=== PATIENT | female | born 1995 | race Caucasian/White ===

== ENCOUNTER 2018-05-19 04:12 | Emergency (ER) | payer BC ==
[~2018-05-19] VITALS: Ht 172.7 cm; Wt 63.5 kg
[2018-05-19] MEDS ORDERED: NOHOMEMEDICATIONS (04:24)
[2018-05-19] MEDS ORDERED: HYDROCODON-ACE118 ML PO (04:53)
[2018-05-19] MEDS ORDERED: LIDOCAINE VISC100 ML SWISH&SPIT (04:53)
[2018-05-19 05:16] VITALS: BP 119/77
== END 2018-05-19 05:18 | disposition home or self-care (01) ==
LOC: M.ERS 04:12
DX: B27.90 Infectious mononucleosis, unspecified without complication (principal)